=== PATIENT | female | born 1950 | race Caucasian/White ===

== ENCOUNTER 2018-02-19 20:04 | Emergency (ER) | payer OTHER ==
[~2018-02-19 20:04] MED LIST: LISI40TA PO; MECL-62 PO; NAPR500 PO; PROP10TA6 PO
[2018-02-19 20:35] VITALS: BP 201/108; PULSE 87; RESP 20; TEMP 98.5
[2018-02-19 21:18] VITALS: BP 186/94; PULSE 74; RESP 18; O2SAT 98
[2018-02-19] MEDS ORDERED: LISI40TA PO (21:18)
[2018-02-19] MEDS ORDERED: PROP20TA3 PO (21:18)
[2018-02-19] MEDS ORDERED: cloNIDine HCL 0.1 MG TAB PO ONE (21:30)
--- NOTE | 2018-02-19 21:37 | PD ---
HPI Chief Complaint: Hypertension Time Seen by Provider: 21:14 Travel History International Travel<30 days: No Contact w/Intl Traveler<30days: No Traveled to known affect area: No History of Present Illness HPI This patient complains of a spike in her blood pressure. She has history of chronic hypertension on 2 medications which she reports compliance with. Typically her blood pressures warm 140/80 and she tracks them daily she denies chest pain or headache or presyncopal symptoms. She feels well but was nervous about her blood pressure as it went over 200 at home. Currently is 184 systolic. No alleviating factors. No exacerbating factors. PFSH Past Medical History Cancer: No Cardiovascular Problems: No Diabetes: No Diminished Hearing: No Endocrine: No Gastrointestinal Disorders: No Genitourinary: No Hepatitis: No Hiatal Hernia: No Hypertension: Yes Immune Disorder: No Musculoskeletal: No Neurologic: No Psychiatric: No Reproductive: No Respiratory: Yes (sinus headaches occ.) Thyroid Disease: No Tetanus Vaccination: Unknown Influenza Vaccination: No ?: Not Menopausal: Yes : 2 Para: 1 Miscarriage: 0 : 0 Ectopic : Yes ("one") Tubal Ligation: Yes Past Surgical History AICD: No Eye Surgery: Yes ("right eye cataract") Genitourinary Surgery: Yes (ECTOPIC ) Joint Replacement: No Pacemaker: No Other Surgery: Yes Social History Alcohol Use: Yes ("2-3 times a week,2-3 beers at a time") Tobacco Use: No (quit 2004) Substance Use: No (denied) Allergies-Medications (Allergen,Severity, Reaction): Coded Allergies: No Known Allergies (Verified Adverse Reaction, Unknown, 02/19/18) Reported Meds & Prescriptions Reported Meds & Active Scripts Active Reported Propranolol (Propranolol HCl) 20 Mg Tab 20 Mg PO Q12HR Lisinopril 40 Mg Tab 40 Mg PO DAILY Review of Systems General / Constitutional: No: Fever Eyes: No: Visual changes HENT: No: Headaches Cardiovascular: No: Chest Pain or Discomfort Respiratory: No: Shortness of Breath Gastrointestinal: No: Abdominal Pain Genitourinary: No: Dysuria Musculoskeletal: No: Pain Skin: No Rash Neurologic: No: Weakness Psychiatric: No: Depression Endocrine: No: Polydipsia Hematologic/Lymphatic: No: Easy Bruising Physical Exam Narrative GENERAL: Well-nourished, well-developed patient in no apparent distress. SKIN: Focused skin assessment reveals no rash and nodules. Skin is Warm and dry. HEAD: Atraumatic. Normocephalic. EYES: Pupils equal and round. No scleral icterus. No injection or drainage. ENT: No nasal bleeding or discharge. Mucous membranes pink and moist. NECK: Trachea midline. No JVD. CARDIOVASCULAR: Regular rate and rhythm. No murmur appreciated. RESPIRATORY: No accessory muscle use. Clear to auscultation. Breath sounds equal bilaterally. GASTROINTESTINAL: Abdomen soft, non-tender, nondistended. Hepatic and splenic margins not palpable. MUSCULOSKELETAL: No obvious deformities. No clubbing. No cyanosis. No edema. NEUROLOGICAL: Awake and alert. No obvious cranial nerve deficits. Motor grossly within normal limits. Normal speech. PSYCHIATRIC: Appropriate mood and affect; insight and judgment normal. Data Data Last Documented VS Vital Signs Date Time Temp Pulse Resp B/P (MAP) Pulse Ox O2 Delivery O2 Flow Rate FiO2 02/19/18 21:18 74 18 186/94 (124) 98 Room Air 02/19/18 20:35 98.5 Orders Orders Clonidine (Catapres) (02/19/18 21:30) [facility] Medical Decision Making Medical Screen Exam Complete: Yes Emergency Medical Condition: Yes Medical Record Reviewed: Yes Differential Diagnosis Accelerated hypertension, noncompliance, essential hypertension Narrative Course I have reviewed the patient's electronic medical record. I reviewed her last 4 visits and her blood pressure was elevated on each of them neurologically intact without symptoms I gave her a small dose of 0.1 mg clonidine She will check and record daily The patient was advised to follow up with their physician and return if they worsen. Diagnosis Primary Impression: Accelerated hypertension Additional Instructions: The patient was advised to follow up with their physician and return if they worsen. Med/Other Pt SpecificInfo: Other Disposition: 01 DISCHARGE HOME Condition: Stable Holden Linder MD Feb 19, 2018 21:37
[2018-02-19 21:54] VITALS: BP 180/88
== END 2018-02-19 21:56 | disposition home or self-care (01) ==
LOC: PHED 20:04
DX: I10 Essential (primary) hypertension (principal); Z87.891 Personal history of nicotine dependence
CPT/HCPCS: 99283